=== PATIENT | female | born 1995 | race Caucasian/White ===

== ENCOUNTER 2022-04-29 08:42 | Inpatient (IN) | payer BC, SELFPAY ==
[2022-04-29] VITALS (59 sets, daily range): BP systolic 118–145; BP diastolic 80–109; PULSE 58–114; RESP 12–39; TEMP 36.8–37.6; O2SAT 96–100; BMI 36.1
--- NOTE | ~2022-04-29 | XR_ITS ---
XR chest 2V DATE: 04/29/2022 09:53 INDICATION: Overdose TECHNIQUE: AP and lateral views COMPARISON: None FINDINGS: Normal heart size. No hilar or mediastinal enlargement. No pulmonary infiltrate or consolid ation, pleural effusion or pulmonary vascular congestion or pneumothorax is detected. Included skelet al structures are unremarkable. IMPRESSION: No active cardiopulmonary disease Reviewed, dictated and finalized at location B.
--- NOTE | 2022-04-29 08:54 | ECG_ITS ---
Measurements Intervals [place] Rate: 118 P: 15 NM: 156 QRS: 44 QRSD: 84 T: 17 QT: 400 QTc: 562 Interpretive Statements SINUS TACHYCARDIA DELAYED PRECORDIAL R/S TRANSITION BASELINE WANDER- I, II, III, AVR, AVF, V1-V3 ABNORMAL ECG NO PREVIOUS ECG AVAILABLE FOR COMPARISON Electronically Signed On 04-29-2022 11:07:49 CDT by Grant Meyer D.O.
--- NOTE | 2022-04-29 09:09 | ED.OVERDOSE ---
HPI - Overdose General Chief Complaint: Overdose Stated Complaint: overdose Time Seen by Provider: 04/29/22 08:49 History of Present Illness HPI Narrative: 26-year-old female presents to the emergency room after ingesting 30 tablets of 20 mg escitalopram, 15 tablets of 10 mg escitalopram, and 2200 mg ibuprofen tablets at approximately 6:00 this morning with the intention of committing suicide. Patient was unable to give any further history as to the cause of her suicidal attempt. Patient did state that she has attempted suicide in the past. Review of Systems Review of Systems: CONSTITUTIONAL: Denies fever, chills, or sweats. EYES: Denies visual changes, redness, or discharge. ENT: Denies rhinorrhea, congestion, sore throat, or otalgia. CARDIOVASCULAR: Denies chest pain, palpitations, or edema. RESPIRATORY: Denies cough or dyspnea. GASTROINTESTINAL: Reports abdominal pain GENITOURINARY: Denies dysuria or hematuria. SKIN: Denies rash or itching. MUSCULOSKELETAL: Denies back pain, joint pain, or myalgia. NEUROLOGIC: Reports weakness, somnolence PSYCHIATRIC: Reports anxiety or depression. PMFSH Social History Social History Substance use type: does not use Exam Narrative: GENERAL: Well-appearing, well-nourished, no physical limitations, and in no acute distress. HEAD: Normocephalic, atraumatic. EYES: Conjunctivae normal, PERRLA and EOMI. ENT: External nose normal, Nares clear, no rhinorrhea or epistaxis. Mucous membranes dry. Oropharynx without tonsillar hypertrophy exudate or other lesions. External ears normal, bilateral TMs normal bilaterally NECK: Supple. No adenopathy or masses. CHEST: Clear to auscultation. No respiratory distress. No wheezes rales or rhonchi. HEART: Regular rate and rhythm. No murmur heard. Normal peripheral pulses. ABDOMEN: Soft, nontender, nondistended, normal active bowel sounds. EXTREMITIES: Normal range of motion. No edema. No clubbing or cyanosis SKIN: Warm, mildly diaphoretic, no rash. No noted wounds NEURO: No focal deficits. Alert and oriented x3. MAEW. CN's II-XI intact bilaterally, patellar DTR +2, no muscle rigidity PSYCH: Cooperative. Flat affect. Course Course Emergency Course: 0900: Poison control contacted. Case #[id number]. They recommend continuous cardiac monitoring, vital sign assessment every hour, baseline EKG and laboratory studies including tox labs, every 2 hour EKG, every 2 hour BMP and magnesium levels. Vital Signs Vital signs: Vital Signs Temperature 36.8 C 04/29/22 08:41 Pulse Rate 111 H 04/29/22 08:41 Respiratory Rate 17 04/29/22 08:41 Blood Pressure 131/109 H 04/29/22 08:41 Pulse Oximetry 98 04/29/22 08:41 Oxygen Delivery Room Air 04/29/22 08:41 Temperature 37.1 C 04/29/22 10:03 Pulse Rate 113 H 04/29/22 10:03 Respiratory Rate 39 H 04/29/22 10:03 Blood Pressure 139/92 H 04/29/22 10:03 Pulse Oximetry 97 04/29/22 10:03 Oxygen Delivery Room Air 04/29/22 08:41 MDM - Overdose MDM Narrative Medical decision making narrative: 26-year-old female presented the emergency room for suspected overdose of a escitalopram and ibuprofen. Poison control was contacted upon patient's arrival. Patient is remained alert and oriented x3. Lab work is unremarkable. Blood pressures have been 140/90, and patient has been mildly tachycardic in the 110s. Crisis has not been contacted as of now due to patient not being medically cleared. Will admit patient to the ICU under IMU status due to being a 1:1. Lab Data Result diagrams: 04/29/22 09:10 04/29/22 09:10 Labs: Lab Results 04/29/22 04/29/22 04/29/22 Range/Units 09:10 09:10 09:10 WBC 10.0 (4.5-10.0) K/mm3 RBC 5.49 H (4.2-5.4) M/mm3 Hgb 16.5 H (12.0-15.0) g/dL Hct 48.4 H (37.0-47.0) % MCV 88.2 (80-100) fl MCH 30.1 (26-34) pg MCHC 34.1 (32-36) g/dl RDW 13.0 (11.5-14.5) % Plt Count 191 (150-375) k/mm3 MPV 1
[2022-04-29 09:22] LABS: Basophils Absolute Auto 0.1 K/mm3 (0.0-0.1); Basophils Percent Auto 0.6 % (0.2-1.2); Eosinophils Absolute Auto 0.1 K/mm3 (0-0.3); Eosinophils Percent Auto 1.3 % (0-4.4); Hematocrit 48.4 % (37.0-47.0); Hemoglobin 16.5 g/dL (12.0-15.0); Immature Granulocyte Absolute 0.04 K/mm3 (0.00-0.031); Immature Granulocyte Percent A 0.4 % (0-0.5); Lymphocytes Absolute Auto 1.95 K/mm3 (0.9-3.2); Lymphocytes Percent Auto 19.5 % (18.3-44.2); Mean Corpuscular HGB Conc 34.1 g/dl (32-36); Mean Corpuscular Hemoglobin 30.1 pg (26-34); Mean Corpuscular Volume 88.2 fl (80-100); Monocytes Absolute Auto 0.6 K/mm3 (0.1-0.6); Monocytes Percent Auto 6.3 % (2.6-8.5); Neutrophils Absolute Auto 7.2 K/mm3 (1.3-6.7); Neutrophils Percent Auto 71.9 % (45.5-73.1); Platelet Count Result 191 k/mm3 (150-375); Red Blood Count 5.49 M/mm3 (4.2-5.4)
[2022-04-29 09:36] LABS: Alanine Aminotransferase 72 U/L (6-35); Albumin Level 4.5 g/dL (3.5-5.1); Alkaline Phosphatase 117 U/L (38-126); Anion Gap 14 mmol/L (8-16); Aspartate Amino Transferase 49 U/L (14-36); Bilirubin,Total 0.5 mg/dL (0.2-1.3); Blood Urea Nitrogen 6 mg/dL (7-17); Calcium 8.8 mg/dL (8.4-10.2); Carbon Dioxide 20 mmol/L (22-30); Chloride 108 mmol/L (98-107); Estimated CRCL calculation 114 ml/min; Estimated Glomerular Filt Rate > 60; Glucose 106 mg/dL (65-110); Lipase 193 U/L (23-300); Potassium 3.6 mmol/L (3.4-5.0); Sodium 142 mmol/L (137-145)
[2022-04-29 09:38] LABS: Appearance Urine Clear (Clear); Bilirubin Urine Negative (Negative); Blood Urine Negative (Negative); Color Urine Yellow (Yellow); Glucose Urine UA Negative (Negative); Ketones Urine Negative (Negative); Leukocyte Esterase Ur Trace LEU/UL (Negative); Nitrate Urine Negative (Negative); Protein Urine Negative (Negative); Specific Grav Ur 1.015 (1.001-1.035); Urobilinogen Urine 0.2 mg/dL (<2.0); pH Urine 5.5 (5.0-9.0)
[2022-04-29 09:44] LABS: Acetaminophen < 10 ug/mL (10-30); Salicylate < 1.0 mg/dL (2-20)
[2022-04-29 09:48] LABS: Troponin I < 0.012 ng/mL (0.000-0.034)
[2022-04-29 09:56] LABS: Calcium Oxalate Crystals Urine Many /hpf; Mucus Urine Rare /lpf; Squamous Epithelial Cell Urine Occasional /hpf (Few); WBC Urine 0-3 /hpf
[2022-04-29 09:57] LABS: Add Urine Microscopic? YES
[2022-04-29 10:20] LABS: INR 1.1; Prothrombin Time 13.7 Seconds (11.1-14.7)
[2022-04-29 10:21] LABS: Partial Thromboplastin Time 27.9 SECONDS (22.3-36.8)
[2022-04-29] MEDS: SODIUM CHLORIDE 0.9% IV 1,000 ML 150 ML IV CONT (11:24)
--- NOTE | 2022-04-29 11:57 | PC.NURSE ---
Spoke with poison control. They wanted a CPK added on. They stated to continue to monitor and get ekg q2, temps q1hr, and cmp q2hr [phone]
--- NOTE | 2022-04-29 12:13 | PC.NURSE ---
Poison control called to verify what we are watching for in patient EkG changes: QRS widening, QT/QTc widening-repeated every 6 hours x2 delayed seizures- benzos as needed gi upset metabolic acidosis seratonin syndrome
[2022-04-29 12:20] LABS: SARS-CoV-2 RNA PCR Negative
[2022-04-29 12:23] LABS: Anion Gap 13 mmol/L (8-16); Blood Urea Nitrogen 5 mg/dL (7-17); Calcium 8.9 mg/dL (8.4-10.2); Carbon Dioxide 20 mmol/L (22-30); Chloride 110 mmol/L (98-107); Creatine Kinase 169 U/L (30-135); Estimated CRCL calculation 114 ml/min; Estimated Glomerular Filt Rate > 60; Glucose 104 mg/dL (65-110); Sodium 143 mmol/L (137-145)
--- NOTE | 2022-04-29 12:44 | ADMGEN ---
Addendum entered by Debby Bee RN 04/29/22 14:38: This patient, Noah Hammond, was admitted to IMU status, and placed in Intensive Care Unit-6. Patient/family oriented to hospital policies and general routines including ID bracelet, bed and alarms, visiting hours, pain management, procedures, bathroom and other care routines, personal items, smoking policy, room service/diet, and visiting hours. Valuables list has been completed. Information on how to activate the Rapid Response Team has been discussed. Patient/Family are encouraged to report perceived risks to care and to ask questions if they do not understand what they are told or what they should do. Original Note: This patient, Noah Hammond, was admitted to Intensive Care Unit-6. Patient/family oriented to hospital policies and general routines including ID bracelet, bed and alarms, visiting hours, pain management, procedures, bathroom and other care routines, personal items, smoking policy, room service/diet, and visiting hours. Information on how to activate the Rapid Response Team has been discussed. Patient/Family are encouraged to report perceived risks to care and to ask questions if they do not understand what they are told or what they should do.
--- NOTE | 2022-04-29 14:09 | ECG_ITS ---
Measurements Intervals [place] Rate: 107 P: 14 AL: 172 QRS: 34 QRSD: 81 T: 27 QT: 405 QTc: 541 Interpretive Statements SINUS TACHYCARDIA DELAYED PRECORDIAL R/S TRANSITION MINIMAL Q WAVES- INFERIOR LEADS BORDERLINE ECG HEART RATE HAS DECREASED Electronically Signed On 04-29-2022 14:18:12 CDT by Grant Meyer D.O.
--- NOTE | 2022-04-29 14:19 | ECG_ITS ---
Measurements Intervals [place] Rate: 89 P: 14 [place]: 184 QRS: 33 QRSD: 84 T: 21 QT: 375 QTc: 458 Interpretive Statements SINUS RHYTHM NONSPECIFIC ST ELEVATION IN DIFFUSE LEADS BORDERLINE ECG COMPARED TO ECG 04/29/2022 11:24:46 HEART RATE HAS DECREASED Electronically Signed On 04-29-2022 15:28:34 CDT by Grant Meyer D.O.
--- NOTE | 2022-04-29 14:26 | PM.IMHP ---
H&P: HPI History of Present Illness Date/Time: 04/29/22 14:26 Chief Complaint: overdose Narrative: this is a 26 year old who has has a history of anxiety and depression. The patient also takes testosterone. The patient was brought into the emergency room after ingesting 30 tablets of 20 mg Lexapro, 15 tablets of 10 mg Lexapro and 2200 mg of ibuprofen approximately 6 am. The patient stated that the intention was to commit suicide. The patient was upset about an incident but did not go into detail. The patient has been admitted to a mental hospital in the past. The patient denies any cutting. Solicit [place] 1.0 acetaminophen less than 10 the rest of the tox screen is pending. Her liver enzymes are mildly elevated AST is 49 ALT 72. Total creatinine kinase 169. Poison Control has been notified. Patient was given IV fluids. The patient is complaining of being nauseated. I explained that I could not give her Zofran at this time because the Zofran with the Lexapro could prolong her QT interval. Patient was admitted to ICU as inpatient status on the date of service of 04/29/2022. Review of Systems Review of Systems: see hpi All systems reviewed & are unremarkable except as noted in HPI and below Constitutional: Constitutional: Reports as per HPI and Reports no additional constitutional complaints Eyes: Eyes: Reports as per HPI and Reports no additional eye complaints ENT: Reports system reviewed and no additional complaints, except as documented and Reports Normal hearing present Cardiovascular: Cardiovascular: Reports no additional cardiovascular complaints Respiratory: Respiratory: Reports no additional respiratory complaints and Reports no additional respiratory complaints Gastrointestinal: Gastrointestinal: Reports as per HPI and Reports no additional gastrointestinal complaints Musculoskeletal: Musculoskeletal: Reports no additional musculoskeletal complaints Integumentary/Breasts: Skin/Breast: Reports system reviewed and no additional complaints, except as docu and Reports as per HPI Neurologic: Reports system reviewed and no additional complaints, except as documented, Reports as per HPI and Reports Normal hearing present Psychiatric: Psychiatric: Reports no additional psychiatric complaints and Reports as per HPI Endocrine: Endocrine: Reports no additional endocrine complaints Hematologic/Lymphatic: Hematologic/Lymphatic: Reports no additional hematologic/lymphatic complaints Allergic/Immunologic: Allergic/Immunologic: Reports no additional allergic/immunologic complaints [facility] Past Medical History Medical History (Updated 04/29/22 @ 14:45 by Rhina Ruelas NP) Anxiety and depression Surgical History Surgical History (Updated 04/29/22 @ 14:45 by Rhina Ruelas NP) No pertinent past surgical history Family History Family History Father Diabetes mellitus Social History Social History (Updated 04/29/22 @ 14:46 by Rhina Ruelas NP) Social History: 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 She lives home alone. She occasionally smokes and maybe drinks 2 times a week. She does not have a durable power banking attorney for healthcare. Code status full code Smoking status: Smoker, status unknown Tobacco type: cigarettes and e-cigarettes/vaping Alcohol intake: current Drinks per week: 5 Substance use: current Substance use type: marijuana Gender identity (if verbalized by the patient): Other Spiritual care concerns: No Meds Home Medications and Allergies Home Medications Medication Instructions Recorded Confirmed Type escitalopram oxalate 20 mg tablet 20 mg PO DAILY 04/29/22 04/29/22 History testosterone cypionate 200 mg/mL 200 mg subcut WEEKLY 04/29/22 04/29/22 History intramuscular kit (Testone CIK) Allergies Allergy/AdvReac Type Severity Reaction Status Date /
--- NOTE | 2022-04-29 14:36 | PC.NURSE ---
Notified Rhina Ruelas NP of EKG reading of *Acute ME*. Rhina compared current EKG to previous EKG's from today and they look comparable with no major changes noted. New order from Rhina Ruelas NP for serial troponins. Continue to monitor
[2022-04-29 15:37] LABS: Ethanol < 10 mg/dL (<10)
[2022-04-29 15:42] LABS: Troponin I < 0.012 ng/mL (0.000-0.034)
[2022-04-29 15:45] LABS: Amphetamine Screen Urine Negative (Negative); Barbiturate Screen Urine Negative (Negative); Benzodiazepines Screen Urine Negative (Negative); Cannabinoid Screen Urine Negative (Negative); Cocaine Screen Urine Negative (Negative); Methadone Screen Urine Negative (Negative); Opiate Screen Urine Negative (Negative); Phencyclidine Screen Urine Negative (Negative)
--- NOTE | 2022-04-29 15:49 | PC.NURSE ---
Spoke with Macey at Poison control. No need for follow-up EKG unless changes are noted on project management engineer. No need for follow-up blood work, pt not acidotic. If no issues between now and 1900, pt can be medically cleared from Poison control. VS remain stable at this time. Rhina Ruelas, HUSSEIN notified of conversation with Poison control.
[2022-04-29] MEDS: SODIUM CHLORIDE 0.9% IV 1,000 ML 125 ML IV CONT (18:05)
[2022-04-29 19:08] LABS: Troponin I < 0.012 ng/mL (0.000-0.034)
[2022-04-29] MEDS: FAMOTIDINE 20 MG/2 ML VIAL IV PUSH (20:10)
[2022-04-29 22:23] LABS: Troponin I < 0.012 ng/mL (0.000-0.034)
[2022-04-30] VITALS (33 sets, daily range): BP systolic 122–149; BP diastolic 71–102; PULSE 53–90; RESP 16–32; TEMP 36.4–37.1; O2SAT 94–99
[2022-04-30] MEDS: SODIUM CHLORIDE 0.9% IV 1,000 ML 125 ML IV CONT ×3 (01:59→18:51)
[2022-04-30 04:27] LABS: Basophils Absolute Auto 0.1 K/mm3 (0.0-0.1); Basophils Percent Auto 0.6 % (0.2-1.2); Eosinophils Absolute Auto 0.2 K/mm3 (0-0.3); Eosinophils Percent Auto 1.7 % (0-4.4); Hematocrit 44.9 % (37.0-47.0); Hemoglobin 14.8 g/dL (12.0-15.0); Immature Granulocyte Absolute 0.03 K/mm3 (0.00-0.031); Immature Granulocyte Percent A 0.3 % (0-0.5); Lymphocytes Absolute Auto 3.31 K/mm3 (0.9-3.2); Lymphocytes Percent Auto 30.6 % (18.3-44.2); Mean Corpuscular Hemoglobin 29.7 pg (26-34); Mean Corpuscular Volume 90.2 fl (80-100); Mean Platelet Volume 12.1 fl (7.4-10.4); Neutrophils Absolute Auto 6.2 K/mm3 (1.3-6.7); Neutrophils Percent Auto 57.8 % (45.5-73.1); Platelet Count Result 178 k/mm3 (150-375); Red Blood Count 4.98 M/mm3 (4.2-5.4); Red Cell Distribution Width 13.2 % (11.5-14.5); White Blood Count 10.8 K/mm3 (4.5-10.0)
[2022-04-30 04:42] LABS: Alanine Aminotransferase 57 U/L (6-35); Albumin Level 3.8 g/dL (3.5-5.1); Alkaline Phosphatase 80 U/L (38-126); Anion Gap 8 mmol/L (8-16); Aspartate Amino Transferase 34 U/L (14-36); Bilirubin,Total 0.6 mg/dL (0.2-1.3); Blood Urea Nitrogen 9 mg/dL (7-17); CRP < 0.5 mg/dL (<1.0); Calcium 8.4 mg/dL (8.4-10.2); Carbon Dioxide 25 mmol/L (22-30); Chloride 112 mmol/L (98-107); Estimated CRCL calculation 102 ml/min; Estimated Glomerular Filt Rate > 60; Glucose 91 mg/dL (65-110); Phosphorus 3.2 mg/dL (2.5-4.5); Sodium 145 mmol/L (137-145)
--- NOTE | 2022-04-30 06:00 | ECG_ITS ---
Measurements Intervals [place] Rate: 75 P: 22 [place]: 201 QRS: 43 QRSD: 85 T: 44 QT: 380 QTc: 425 Interpretive Statements SINUS RHYTHM NONSPECIFIC ST ELEVATION IN DIFFUSE LEADS BORDERLINE ECG COMPARED TO ECG 04/29/2022 14:28:23 NO SIGNIFICANT CHANGES Electronically Signed On 04-30-2022 12:57:23 CDT by Grant Meyer D.O.
[2022-04-30] MEDS: FAMOTIDINE 20 MG/2 ML VIAL IV PUSH ×2 (09:22→20:09)
--- NOTE | 2022-04-30 10:02 | PM.IMPN ---
Progress Note: A&P Assessment and Plan (1) Drug overdose: Code(s): T50.901A - Poisoning by unspecified drugs, medicaments and biological substances, accidental (unintentional), initial encounter Status: Acute Assessment and Plan: continue IV fluids monitor number 24 hours. Crisis about 1 stable (2) Suicide attempt: Code(s): T14.91XA - Suicide attempt, initial encounter Status: Acute Assessment and Plan: -patient stated that this was a suicide attempt due to an event that occurred that was not fully explored at this time (3) Anxiety and depression: Code(s): F41.9 - Anxiety disorder, unspecified; F32.A - Depression, unspecified Status: Acute Assessment and Plan: -the patient had been on Lexapro but now has overdosed on Lexapro as mentioned above. -the patient is feeling some nausea but I am avoiding any anti nausea medicine at this time as it can increase the chance of prolonged QT. Subjective Date/time seen: 04/30/22 10:02 no complaints Exam Const: General: cooperative, healthy appearing, comfortable, no acute distress, well developed, alert, awake, Physically active and tired appearing Nutritional Appearance: overweight Orientation/consciousness: oriented to person, oriented to place, oriented to time and patient oriented x3 Limitations: no limitations HENMT: Head: normal to inspection, No palpable skull fracture present, normocephalic and atraumatic Ears: hearing grossly normal bilaterally and external ears normal General nose exam: Normal external nose present and Normal nares present Eyes: General: appearance normal, both eyes and all related structures Alignment and Position: alignment normal Periorbital: periorbital findings normal Eyelids: eyelids normal Sclera: sclerae normal Pupils: Equal, round and reactive pupils present EOM: EOMs intact bilaterally Neck: Neck: normal visual inspection, full ROM, no lymphadenopathy, trachea midline and supple Chest: Chest palpation & inspection: normal inspection of the chest Resp: Effort & Inspection: normal respiratory effort Auscultation: clear to auscultation bilaterally Cardio: Palpation: normal PMI Rate: tachycardic Rhythm: regular rhythm Heart sounds: S1 normal heart sound present and S2 normal heart sound present Peripheral pulses: Peripheral pulses 2+ throughout GI: Inspection: normal to inspection Auscultation: normal bowel sounds Rectal Exam: deferred Back/Spine/Pelvis: Cervical Spine: cervical ROM normal Skin: General skin exam: normal color Lesions: no lesions Rashes: no rashes Hair: normal Nails: normal Neuro: General: oriented to person, oriented to place, oriented to time and patient oriented x3 Cranial nerves: Yes Equal, round and reactive pupils present and Yes Normal hearing present Cognition (Neuro): normal cognition Speech: normal speech Motor exam (neuro): 5/5 motor strength present throughout Sensory Exam: normal sensation Extrem: General: normal to inspection Right upper extremity: normal to inspection and shoulder/upper arm Left upper extremity: normal to inspection and shoulder/upper arm Right lower extremity: normal to inspection Left lower extremity: normal to inspection Psych: Appearance: grossly normal Mental Status: mental status grossly normal Speech and movement: Normal speech and movement present Affect: normal affect Attitude: cooperative Thought process: Normal thought process present Insight: Good insight present (Psych) Judgement: Good judgement present (Psych) Objective Data Vital Signs Vital Signs: Vital Signs - 24 hr 04/29/22 10:03 04/29/22 10:04 04/29/22 10:21 Temperature 98.7 F Pulse Rate 113 H 114 H 114 H Respiratory Rate 39 H 35 H 28 H Blood Pressure 139/92 H 139/92 H 131/90 Pulse Oximetry 97 97 97 Oxygen Delivery 04/29/22 10:41 04/29/22 11:01 04/29/22 11:21 Temperature 99.4 F Pulse Rate 110 H 103 H 106 H Respiratory Rat
[2022-05-01] VITALS (42 sets, daily range): BP systolic 122–155; BP diastolic 86–135; PULSE 50–104; RESP 13–29; TEMP 36.6–37.1; O2SAT 98–100
[2022-05-01] MEDS: SODIUM CHLORIDE 0.9% IV 1,000 ML 125 ML IV CONT (02:30)
[2022-05-01] MEDS: FAMOTIDINE 20 MG/2 ML VIAL IV PUSH (08:19)
--- NOTE | 2022-05-01 10:21 | PM.IMPN ---
Progress Note: A&P Assessment and Plan (1) Drug overdose: Code(s): T50.901A - Poisoning by unspecified drugs, medicaments and biological substances, accidental (unintentional), initial encounter Status: Acute Assessment and Plan: continue IV fluids patient is medically cleared and stable. Crisis may evaluate (2) Suicide attempt: Code(s): T14.91XA - Suicide attempt, initial encounter Status: Acute Assessment and Plan: -patient stated that this was a suicide attempt due to an event that occurred that was not fully explored at this time (3) Anxiety and depression: Code(s): F41.9 - Anxiety disorder, unspecified; F32.A - Depression, unspecified Status: Acute Assessment and Plan: -the patient had been on Lexapro but now has overdosed on Lexapro as mentioned above. -the patient is feeling some nausea but I am avoiding any anti nausea medicine at this time as it can increase the chance of prolonged QT. Subjective Date/time seen: 05/01/22 10:21 no complaints Exam Const: General: cooperative, healthy appearing, comfortable, no acute distress, well developed, alert, awake, Physically active and tired appearing Nutritional Appearance: overweight Orientation/consciousness: oriented to person, oriented to place, oriented to time and patient oriented x3 Limitations: no limitations HENMT: Head: normal to inspection, No palpable skull fracture present, normocephalic and atraumatic Ears: hearing grossly normal bilaterally and external ears normal General nose exam: Normal external nose present and Normal nares present Eyes: General: appearance normal, both eyes and all related structures Alignment and Position: alignment normal Periorbital: periorbital findings normal Eyelids: eyelids normal Sclera: sclerae normal Pupils: Equal, round and reactive pupils present EOM: EOMs intact bilaterally Neck: Neck: normal visual inspection, full ROM, no lymphadenopathy, trachea midline and supple Chest: Chest palpation & inspection: normal inspection of the chest Resp: Effort & Inspection: normal respiratory effort Auscultation: clear to auscultation bilaterally Cardio: Palpation: normal PMI Rate: tachycardic Rhythm: regular rhythm Heart sounds: S1 normal heart sound present and S2 normal heart sound present Peripheral pulses: Peripheral pulses 2+ throughout GI: Inspection: normal to inspection Auscultation: normal bowel sounds Rectal Exam: deferred Back/Spine/Pelvis: Cervical Spine: cervical ROM normal Skin: General skin exam: normal color Lesions: no lesions Rashes: no rashes Hair: normal Nails: normal Neuro: General: oriented to person, oriented to place, oriented to time and patient oriented x3 Cranial nerves: Yes Equal, round and reactive pupils present and Yes Normal hearing present Cognition (Neuro): normal cognition Speech: normal speech Motor exam (neuro): 5/5 motor strength present throughout Sensory Exam: normal sensation Extrem: General: normal to inspection Right upper extremity: normal to inspection and shoulder/upper arm Left upper extremity: normal to inspection and shoulder/upper arm Right lower extremity: normal to inspection Left lower extremity: normal to inspection Psych: Appearance: grossly normal Mental Status: mental status grossly normal Speech and movement: Normal speech and movement present Affect: normal affect Attitude: cooperative Thought process: Normal thought process present Insight: Good insight present (Psych) Judgement: Good judgement present (Psych) Objective Data Vital Signs Vital Signs: Vital Signs - 24 hr 04/30/22 12:00 04/30/22 12:00 04/30/22 10:57 Temperature Pulse Rate 78 65 81 Respiratory Rate 24 H 25 H Blood Pressure Pulse Oximetry 98 Oxygen Delivery Room Air 04/30/22 11:00 04/30/22 11:01 04/30/22 11:15 Temperature Pulse Rate 86 67 73 Respiratory Rate 20 25 H 22 H Blood Pressure 149/102
--- NOTE | 2022-05-01 12:25 | PM.DS ---
DS: Admitting Diagnosis Discharge Date 05/01/22 Admitting Diagnosis suicide attempt DS: Discharge Diagnosis Discharge Diagnosis (1) Drug overdose: Code(s): T50.901A - Poisoning by unspecified drugs, medicaments and biological substances, accidental (unintentional), initial encounter Status: Acute Assessment and Plan: continue IV fluids patient is medically cleared and stable. Crisis may evaluate (2) Suicide attempt: Code(s): T14.91XA - Suicide attempt, initial encounter Status: Acute Assessment and Plan: -patient stated that this was a suicide attempt due to an event that occurred that was not fully explored at this time (3) Anxiety and depression: Code(s): F41.9 - Anxiety disorder, unspecified; F32.A - Depression, unspecified Status: Acute Assessment and Plan: -the patient had been on Lexapro but now has overdosed on Lexapro as mentioned above. -the patient is feeling some nausea but I am avoiding any anti nausea medicine at this time as it can increase the chance of prolonged QT. DS: Summary Hospital Course Hospital Course: Patient admitted for suicide attempt by taking her ssri - no longer having ideations - crisis evaluated patient and she is able to go home. Patient is dc to home, follow up with psychiatrist. Time Spent with Patient Time attestation: Total time spent providing and/or coordinating discharge services: Exam Const: General: cooperative, healthy appearing, comfortable, no acute distress, well developed, alert, awake, Physically active and tired appearing Nutritional Appearance: overweight Orientation/consciousness: oriented to person, oriented to place, oriented to time and patient oriented x3 Limitations: no limitations HENMT: Head: normal to inspection, No palpable skull fracture present, normocephalic and atraumatic Ears: hearing grossly normal bilaterally and external ears normal General nose exam: Normal external nose present and Normal nares present Eyes: General: appearance normal, both eyes and all related structures Alignment and Position: alignment normal Periorbital: periorbital findings normal Eyelids: eyelids normal Sclera: sclerae normal Pupils: Equal, round and reactive pupils present EOM: EOMs intact bilaterally Neck: Neck: normal visual inspection, full ROM, no lymphadenopathy, trachea midline and supple Chest: Chest palpation & inspection: normal inspection of the chest Resp: Effort & Inspection: normal respiratory effort Auscultation: clear to auscultation bilaterally Cardio: Palpation: normal PMI Rate: tachycardic Rhythm: regular rhythm Heart sounds: S1 normal heart sound present and S2 normal heart sound present Peripheral pulses: Peripheral pulses 2+ throughout GI: Inspection: normal to inspection Auscultation: normal bowel sounds Rectal Exam: deferred Back/Spine/Pelvis: Cervical Spine: cervical ROM normal Skin: General skin exam: normal color Lesions: no lesions Rashes: no rashes Hair: normal Nails: normal Neuro: General: oriented to person, oriented to place, oriented to time and patient oriented x3 Cranial nerves: Yes Equal, round and reactive pupils present and Yes Normal hearing present Cognition (Neuro): normal cognition Speech: normal speech Motor exam (neuro): 5/5 motor strength present throughout Sensory Exam: normal sensation Extrem: General: normal to inspection Right upper extremity: normal to inspection and shoulder/upper arm Left upper extremity: normal to inspection and shoulder/upper arm Right lower extremity: normal to inspection Left lower extremity: normal to inspection Psych: Appearance: grossly normal Mental Status: mental status grossly normal Speech and movement: Normal speech and movement present Affect: normal affect Attitude: cooperative Thought process: Normal thought process present Insight: Good insight present (Psych) Judgement: Good judgement present (Psych) Discha
== END 2022-05-01 13:06 | disposition home or self-care (01) | DRG 918 ==
LOC: ANHED 11:18 → ANHICU 11:41
PROVIDERS: Nurse Practitioner; Admitting Provider Internal Medicine; Emergency Provider Nurse Practitioner Family; Visit Provider Chiropractor
DX: T43.222A Poisoning by selective serotonin reuptake inhibitors, intentional self-harm, initial encounter (principal); F41.9 Anxiety disorder, unspecified; F32.A Depression, unspecified; F17.290 Nicotine dependence, other tobacco product, uncomplicated; Z20.822 Contact with and (suspected) exposure to COVID-19
CPT/HCPCS: 36415; 71046; 80048; 80053; 80307; 81001; 81025; 82550; 82728; 83690; 83735; 84100; 84443; 84484; 85025; 85610; 85730; 86140; 93005; 99285; C9803; J7030; U0003; U0005